=== PATIENT | female | born 1995 | race Hispanic/Latino ===

== ENCOUNTER 2019-12-23 06:51 | Outpatient (CLI) | payer BC ==
--- NOTE | 2019-12-23 07:45 | ULT ---
Pelvic sonogram transabdominal imaging with duplex evaluation HISTORY: Early . Evaluate for viability. FINDINGS: Uterus has a heterogeneous echotexture and is 8.4 cm length. Within the endometrial cavity is a somewhat irregular shaped cystic structure which, when measured as a gestational sac, is 6 weeks 2 days size. A tiny internal echogenic focus is present without heart motion reliably demonstrated. No free fluid within the pelvis. Each ovary has normal appearance with good color and spectral Doppler flow. IMPRESSION : Cystic structure within the endometrial cavity has the appearance of an early gestational sac (6 week s 2 days), however, some characteristics such as the irregular shape and appearance of the internal content suggest pending spontaneous . Please consider close continued clinical and sonographi c follow-up.
== END 2019-12-23 06:52 | disposition home or self-care (01) ==
LOC: BICULT 06:51
PROVIDERS: ATTEND Nurse Practitioner
DX: Z34.91 Encounter for supervision of normal pregnancy, unspecified, first trimester (principal); N85.8 Other specified noninflammatory disorders of uterus; Z3A.01 Less than 8 weeks gestation of pregnancy
CPT/HCPCS: 76856

== ENCOUNTER 2022-07-19 14:29 | Outpatient (CLI) | payer BC | END 2022-07-19 14:30 | disposition home or self-care (01) | LOC: ULT 14:29 | PROVIDERS: ATTEND Physician Assistant | DX: N91.2 Amenorrhea, unspecified (principal) | CPT/HCPCS: 76856; 93976 ==